=== PATIENT | female | born 1950 | race Caucasian/White ===

== ENCOUNTER 2022-05-03 08:36 | Day surgery (SDC) | payer MEDICARE, BC ==
[2022-05-03] VITALS (10 sets, daily range): BP systolic 106–142; BP diastolic 64–779; PULSE 66–95; TEMP 97.1–98.5
[~2022-05-03] VITALS: Ht 165.1 cm; Wt 112.0 kg
[2022-05-03] MEDS ORDERED: MICARDIS HCT 121 TAB PO (10:10)
[2022-05-03] MEDS ORDERED: ADALAT CC90 MG PO (10:10)
[2022-05-03] MEDS ORDERED: CYMBALTA 60MG60 MG PO (10:11)
[2022-05-03] MEDS ORDERED: TURMERIC500 MG (10:20)
[2022-05-03] MEDS ORDERED: CELEBREX 200MG200 MG PO (10:20)
[2022-05-03] MEDS ORDERED: VITAMIN D 400400 IU PO (11:51)
[2022-05-03] MEDS ORDERED: VITAMIN B12 781 TAB PO (11:52)
--- NOTE | 2022-05-03 23:58 | NUR ---
SHIFT REPORT FROM JO-ANN ROMERO. PATIENT IN BED ON ROOM ENTRY. HS MEDS PER EMAR. PRN NAPROXEN AND NORCO FOR PAIN. SLING TO R ARM. AQUACELL TO R SHOULDER X2 CDI. IV TO INT. SBA TO BATHROOM. DENIES ADDITIONAL NEEDS. CALL LIGHT IN REACH.
[2022-05-04 00:01] VITALS: BP 112/80; PULSE 86; TEMP 98.8
[2022-05-04 03:36] VITALS: BP 136/71; PULSE 79; TEMP 98.4
[2022-05-04 06:54] LABS: HEMOGLOBIN 10.4 g/dl (12.5-16.0)
[2022-05-04 06:57] LABS: HEMATOCRIT 31.4 % (37.0-47.0)
[2022-05-04 07:12] LABS: CALCIUM 8.4 mg/dL (8.4-10.2); CREATININE, serum 1.03 mg/dL (0.57-1.11); POTASSIUM 4.2 mmol/L (3.5-4.5)
[2022-05-04 08:00] VITALS: BP 119/71; PULSE 78; TEMP 98.2
--- NOTE | 2022-05-04 08:00 | NUR ---
PATIENT IS A&O. VSS. PATIENT REQUESTING PAIN MEDS BEFORE AM THERAPY, GIVEN. RIGHT SHOULDER DSG IS CD&I WITH AQUACELS, ICE PACK AND ABD SLING INPLACE. GOOD CMS TO TOMAS. PT/OT CONSULTED. PATIENT HOPING TO DISCHARGE HOME LATER TODAY. NO C/O N/V. BREAKFAST TRAY AT BEDSIDE. AM MEDS GIVEN. HEAD TO TOE ASSESSMENT WNL. LEFT HAND IV TO INT. NO OTHER NEEDS AT THIS TIME. CALL LIGHT IN REACH.
[2022-05-04 12:00] VITALS: BP 116/76; PULSE 87; TEMP 98.2
--- NOTE | 2022-05-04 12:28 | NUR ---
Initial visit; Patient thanked Rn Licensed Practical for looking in on her and offering prayer of thanksgiving for her lunch and for God's presence and for healing.
[2022-05-04] MEDS ORDERED: NORCO 325 MG-51 TAB PO (14:00)
[2022-05-04] MEDS ORDERED: DOXYCYCLINE 10100 MG PO (14:00)
--- NOTE | 2022-05-04 15:15 | NUR ---
PATIENT DISCHARGING HOME VIA WC TO PERSONAL VEHICLE WITH DAUGHTER. VEHICLE TECHNICIAN TALKED WITH PATIENT AND DAUGHTER ABOUT HOME HEALTH. DISCHARGE INSTRUCTIONS GIVEN, ANSWERED QUESTIONS/CONCERNS, E-SCRIPTS SENT, AND DISCUSSED F/U APT. NO IV SITE. PATIENT IS DRESSED, PACKED AND DISCHARGED.
--- NOTE | 2022-05-04 16:23 | NUR ---
Security Developer met with patient to discuss discharge planning. Patient lives in [place] and sees Dr. Prahci Abernathy for primary care. Patient obtains medications from [facility]. Patient advised she is supposed to use oxygen at night but does not have it set up yet. Patient also reported that she is going to be borrowing a walker from her local senior center at time of discharge. Patient does not have DPOA-HC at this time and may be interested later on today in completing the form. Patient's legal next of kin is her daughter, Jomar. Patient expressed interest in swing bed and SW advised that she would not qualify for SB as she is outpatient status. Patient verbalized understanding and will plan to return home. Patient is interested in Home Health services so SW provided Medicare.gov list of agencies for review. SW followed up later in the afternoon when daughter, Kishore is at bedside. Patient reviewed list and selected [facility]. TOMAS contacted Tra at [facility] and faxed referral with discharge orders. Tra advised they an accept patient. Discharge Plan: Home with [facility]
== END 2022-05-04 15:15 | disposition home health service (06) ==
LOC: SURG 08:36 → SDCO 08:36 → SURG 14:00 → SDCO 05-04 15:15
PROVIDERS: Physician Assistant
DX: M19.011 Primary osteoarthritis, right shoulder (principal); M25.811 Other specified joint disorders, right shoulder; M79.7 Fibromyalgia; G47.33 Obstructive sleep apnea (adult) (pediatric); I10 Essential (primary) hypertension; K21.9 Gastro-esophageal reflux disease without esophagitis; F32.A Depression, unspecified; Z87.891 Personal history of nicotine dependence; Z79.899 Other long term (current) drug therapy
CPT/HCPCS: OP; A4619; A9284; C1713; C1776; J0690; J1100; J1170; J1885; J2270; J2370; J2405; J2704; J3010; J7030; J7120